=== PATIENT | female | born 1940 | race Caucasian/White ===

== ENCOUNTER 2017-05-16 13:58 | Emergency (ER) | payer MEDICARE, OTHER ==
--- NOTE | 2017-05-16 15:12 | C.PDOC ---
History Of Present Illness 76 y/o female, with multiple medical problems, c/o cough for more than a week,, initially with green sputum. pt seen by her pmd on 05/11 and prescribed a zpak, po albuterol syrup and benzonatate. pt sts sputum now clearish- whitish, but still coughing, unable to sleep and has cp when coughing. Time Seen by Provider: 05/16/17 14:56 Chief Complaint (Nursing): Cough, Cold, Congestion History Per: Patient History/Exam Limitations: no limitations Onset/Duration Of Symptoms: Days Current Symptoms Are (Timing): Still Present Reports Recently: Treated By A Physician Recent travel outside of the [place]: No Past Medical History Reviewed: Historical Data, Nursing Documentation, Vital Signs Vital Signs: Last Vital Signs Temp 98.8 F 05/16/17 18:27 Pulse 81 05/16/17 18:27 Resp 20 05/16/17 18:27 BP 153/86 H 05/16/17 18:27 Pulse Ox 95 05/18/17 11:08 - Medical History PMH: Anxiety, Arthritis, Dementia, Depression, HTN (pt denies), Hypercholesterolemia Denies: Chronic Kidney Disease - [facility] Procedures ENDOSC POLYPECTOMY OF LG INTEST (01/01/15) Family History: States: Unknown Family Hx - Social History Hx Tobacco Use: No Hx Alcohol Use: No Hx Substance Use: No - Immunization History Hx Tetanus Toxoid Vaccination: No Hx Influenza Vaccination: No Hx Pneumococcal Vaccination: No Review Of Systems Constitutional: Negative for: Fever, Chills Cardiovascular: Negative for: Chest Pain, Palpitations Respiratory: Positive for: Cough, Pleuritic Pain, Sputum. Negative for: Shortness of Breath Gastrointestinal: Negative for: Nausea, Vomiting, Abdominal Pain, Diarrhea Skin: Negative for: Rash Neurological: Negative for: Headache, Dizziness Physical Exam - Physical Exam Appears: Non-toxic, No Acute Distress Skin: Warm, Dry Head: Atraumatic, Normacephalic Oral Mucosa: Dry (slightly) Neck: No Paracervical Tenderness, Supple Chest: Symmetrical Cardiovascular: Rhythm Regular, No Murmur Respiratory: No Accessory Muscle Use, No Rales, No Rhonchi, Wheezing (scattered , left, expiratory) Gastrointestinal/Abdominal: Soft, No Tenderness Back: Normal Inspection Extremity: Normal ROM, No Pedal Edema, No Calf Tenderness, Capillary Refill (< 2 sec.) Neurological/Psych: Oriented x3, Normal Speech, Normal Cognition ED Course And Treatment - Laboratory Results Result Diagrams: 05/16/17 16:18 05/16/17 16:18 ECG: Interpreted By Me ECG Rhythm: Sinus Rhythm ECG Interpretation: No Acute Changes Rate From EC (bpm) O2 Sat by Pulse Oximetry: 95 (RA) Pulse Ox Interpretation: Normal Medical Decision Making Medical Decision Making: Treated with Tylenol and duoneb. Labs, EKG, ordered & reviewed. [address] Ray; will give pt course of steroids and albuterol mdi; d/c home with outpatient f/u. 549 pm pt feeling much better after duoneb tx, lungs clear to auscultation; will d/c home with mdi and steroids. Disposition Discussed With Dr.: Alex Ray Doctor Will See Patient In The: Office Counseled Patient/Family Regarding: Studies Performed, Diagnosis, Need For Followup, Rx Given - Disposition Referrals: Alex Ray MD [Staff Provider] - Disposition: HOME/ ROUTINE Disposition Time: 17:51 Condition: IMPROVED Additional Instructions: Take prednisone as prescribed. Use 2 puffs on inhaler every 6 hours when coughing a lot; Follow up with Dr Ray in a few days. Return to ER for any worsening symptoms. Prescriptions: Albuterol HFA [Ventolin HFA 90 mcg/actuation (8 g)] 2 puff IH Q6 #1 inhaler predniSONE [predniSONE Tab] 2 tab PO DAILY #8 tab Instructions: COPD (Chronic Obstructive Pulmonary Disease) (ED) Print Language: GREENLANDIC - Clinical Impression Clinical Impression: Bronchitis - PA / DIGITAL CARTOGRAPHER / Resident Statement MD/DO has reviewed & agrees with the documentation as recorded. - Scribe Statement The provider has reviewed the documentation as recorded by the Shaiibdmitriy Núñez All medical record entries made by the Shaiibdmitriy were at my direction and personally dictated by me. I have reviewed the chart and agree that the record accurately reflects my personal performance of the history, physical exam, medical decision making, and the department course for this patient. I have also personally directed, reviewed, and agree with the discharge instructions and disposition.
--- NOTE | 2017-05-16 16:02 | RAD ---
HISTORY: COUGH COMPARISON: No prior. TECHNIQUE: Chest PA and lateral FINDINGS: LUNGS: Hyperinflation, manifestations of COPD. No active pulmonary disease. PLEURA: No significant pleural effusion identified. No pneumothorax apparent. CARDIOVASCULAR: No radiographic findings to suggest acute or significant cardiovascular disease. OSSEOUS STRUCTURES: No significant abnormalities. VISUALIZED UPPER ABDOMEN: Normal. OTHER FINDINGS: None. IMPRESSION: No active disease.
[2017-05-16] MEDS ORDERED: Albuterol-Ipratrop 3 mg / 0.5 (3 ml) UD INH STA (16:17)
[2017-05-16 16:26] LABS: BASO # 0.1 K/uL (0.0-0.2); BASO % 1.3 % (0.0-2.0); EOS # 0.5 K/uL (0.0-0.7); EOS % 5.7 % (0.0-4.0); HEMOGLOBIN 12.7 g/dL (11.0-16.0); LYMPH # 3.8 K/uL (1.0-4.3); LYMPH % 45.4 % (20.0-40.0); MEAN CELL VOLUME 82.7 fL (81.0-99.0); MEAN CORPUSCULAR HEMOGLOBIN 26.2 pg (27.0-31.0); MEAN CORPUSCULAR HGB CONC 31.6 g/dL (33.0-37.0); MEAN PLATELET VOLUME 11.1 fL (7.2-11.7); MONO # 1.1 K/uL (0.0-0.8); MONO % 12.6 % (0.0-10.0); NEUT # 2.9 K/uL (1.8-7.0); RBC 4.87 Mil/uL (3.80-5.20); RED CELL DISTRIBUTION WIDTH 13.5 % (11.5-14.5); WHITE BLOOD COUNT 8.4 K/uL (4.8-10.8)
[2017-05-16] MEDS ORDERED: Albuterol-Ipratrop 3 mg / 0.5 (3 ml) UD ONE (16:26)
[2017-05-16 16:45] LABS: GFR AFRICAN-AMERICAN > 60; GFR NON-AFRICAN AMERICAN > 60
[2017-05-16 16:46] LABS: ALB/GLOB RATIO 1.2 (1.0-2.1); ALT/SGPT 30 U/L (9-52); AST/SGOT 31 U/L (14-36); BLOOD UREA NITROGEN 11 mg/dL (7-17); CALCIUM 8.4 mg/dl (8.6-10.4)
[2017-05-16 18:30] VITALS: BP 153/86; PULSE 81; RESP 20; TEMP 98.8
[2017-05-18 11:09] VITALS: O2SAT 95
--- NOTE | 2017-05-18 16:23 | CARD ---
APPROVED REPORT EKG Measurement Heart [id number] <Conclusion> Normal sinus rhythm Normal ECG
== END 2017-05-16 18:27 | disposition home or self-care (01) ==
LOC: C.ER 13:58
DX: J40 Bronchitis, not specified as acute or chronic (principal)

== ENCOUNTER 2017-07-02 10:12 | Emergency (ER) | payer MEDICARE, OTHER ==
[2017-07-02 10:19] VITALS: TEMP 98.2
[2017-07-02 10:51] LABS: BASO # 0.1 K/uL (0.0-0.2); BASO % 1.2 % (0.0-2.0); EOS # 0.1 K/uL (0.0-0.7); EOS % 1.8 % (0.0-4.0); HEMATOCRIT 38.6 % (34.0-47.0); LYMPH # 2.8 K/uL (1.0-4.3); LYMPH % 40.7 % (20.0-40.0); MEAN CELL VOLUME 82.1 fL (81.0-99.0); MEAN CORPUSCULAR HEMOGLOBIN 26.6 pg (27.0-31.0); MEAN CORPUSCULAR HGB CONC 32.4 g/dL (33.0-37.0); MEAN PLATELET VOLUME 9.3 fL (7.2-11.7); MONO # 0.7 K/uL (0.0-0.8); MONO % 9.8 % (0.0-10.0); NRBC % 0.1 % (0.0-2.0); RED CELL DISTRIBUTION WIDTH 13.6 % (11.5-14.5); WHITE BLOOD COUNT 6.9 K/uL (4.8-10.8)
[2017-07-02 11:03] LABS: CHLORIDE 101 mmol/L (98-107); POTASSIUM 3.6 mmol/L (3.6-5.2); SODIUM 139 mmol/L (132-148)
[2017-07-02 11:05] LABS: ALB/GLOB RATIO 1.2 (1.0-2.1); ALKALINE PHOSPHATASE 72 U/L (38-126); AST/SGOT 34 U/L (14-36); BILIRUBIN,TOTAL 0.7 mg/dL (0.2-1.3); CARBON DIOXIDE 27 mmol/L (22-30); GFR AFRICAN-AMERICAN > 60; TOTAL PROTEIN 6.9 g/dL (6.3-8.3)
[2017-07-02 11:06] LABS: ALT/SGPT 33 U/L (9-52); BLOOD UREA NITROGEN 12 mg/dL (7-17); CALCIUM 8.7 mg/dl (8.6-10.4); GLUCOSE,RANDOM 86 mg/dL (65-105)
--- NOTE | 2017-07-02 11:23 | C.PDOC ---
History Of Present Illness 76-year-old female whose past medical history includes COPD, presents to the ED for evaluation swelling to her bilateral feet which began around 4 days ago. Patient also reports shortness of breath with exertion as well as an intermittent cough which began around 1 month ago. Patient states she has already been evaluated by her PMD and is receiving treatment for cough. She denies fever, chills, chest pain, extremity numbness/weakness, or direct trauma/ injury to the affected area. Time Seen by Provider: 07/02/17 10:22 Chief Complaint (Nursing): Lower Extremity Problem/Injury History Per: Patient History/Exam Limitations: no limitations Onset/Duration Of Symptoms: Days (4), Intermittent Episodes Current Symptoms Are (Timing): Still Present Additional History Per: Patient Past Medical History Reviewed: Historical Data, Nursing Documentation, Vital Signs Vital Signs: Last Vital Signs Temp 98.2 F 07/02/17 10:18 Pulse 72 07/02/17 11:32 Resp 18 07/02/17 11:32 BP 146/82 07/02/17 11:32 Pulse Ox 95 07/02/17 12:44 - Medical History PMH: Anxiety, Arthritis, COPD, Dementia, Depression, HTN (pt denies), Hypercholesterolemia Surgical History: No Surg Hx - [facility] Procedures ENDOSC POLYPECTOMY OF LG INTEST (01/01/15) Family History: States: Unknown Family Hx - Social History Hx Tobacco Use: No Hx Alcohol Use: No Hx Substance Use: No - Immunization History Hx Tetanus Toxoid Vaccination: No Hx Influenza Vaccination: No Hx Pneumococcal Vaccination: No Review Of Systems Constitutional: Negative for: Fever, Chills Cardiovascular: Negative for: Chest Pain Respiratory: Positive for: Cough, SOB with Excertion Musculoskeletal: Positive for: Other (bilateral feet swelling) Neurological: Negative for: Weakness, Numbness Physical Exam - Physical Exam Appears: Non-toxic, No Acute Distress Skin: Normal Color, Warm, Dry Head: Atraumatic, Normacephalic Eye(s): bilateral: Normal Inspection Oral Mucosa: Moist Neck: Supple Chest: Symmetrical, No Deformity, No Tenderness Cardiovascular: Rhythm Regular, No Murmur Respiratory: Normal Breath Sounds, No Rales, No Rhonchi, No Wheezing Back: Normal Inspection Extremity: Normal ROM, Pedal Edema (mild, non-pitting ), No Calf Tenderness, Capillary Refill (less than 2 seconds ) Pulses: Left Dorsalis Pedis: Normal (2+), Right Dorsalis Pedis: Normal (2+) Neurological/Psych: Oriented x3, Normal Speech, Normal Cognition Gait: Steady ED Course And Treatment - Laboratory Results Result Diagrams: 07/02/17 10:46 07/02/17 10:46 Lab Interpretation: No Acute Changes O2 Sat by Pulse Oximetry: 95 (on RA) Pulse Ox Interpretation: Normal - Other Rad CXR X-Ray: Interpreted by Me, Viewed By Me, Read By Radiologist Interpretation: PROCEDURE: CHEST RADIOGRAPH, 1 VIEW. HISTORY: SOB. COMPARISON: None available. FINDINGS: LUNGS: Clear. PLEURA: No pneumothorax or pleural fluid seen. CARDIOVASCULAR: Normal. OSSEOUS STRUCTURES: No significant abnormalities. VISUALIZED UPPER ABDOMEN: Elevation left hemidiaphragm is appreciated mildly. OTHER FINDINGS: None. IMPRESSION: No acute infiltrate or pleural effusion identified. Mild elevation left hemidiaphragm identified at this time. Medical Decision Making Medical Decision Making: Impression: 76 y/o female with b/l feet swelling Plan: * labs * EKG * CXR * reassess and disposition Progress: labs, EKG, CXR ordered and reviewed. Labs show no acute findings, no elevated BNP or leukocytosis. Patient received Lasix PO. Patient remained afebrile alert and oriented with stable vital signs during ER evaluation. Discussed results with patient, and copy of report was provided. On re-examination, patient is resting comfortably in no acute distress. Patient given follow up instructions. Instructed to return to ER if symptoms worsen or new symptoms arise. Disposition Counseled Patient/Family Regarding: Diagnosis, Need For Followup, Rx Given - Disposition Referrals: Alex Ray MD [Staff Provider] - Disposition: HOME/ ROUTINE Disposition Time: 11:22 Condition: STABLE Additional Instructions: Vaya a morgan mdico o la clnica en 2-5 murguia sin falta, para mas evaluacin. [place] los medicamentos cate indicado. Volver a la gil de emergencia en cualquier momento si los sntomas persisten o empeoran. Prescriptions: Furosemide [Lasix] 20 mg PO DAILY #10 tab Instructions: Leg Edema (ED) Forms: [employer] (Chadian) Print Language: SOMALI - POA Present On Arrival: None - Clinical Impression Clinical Impression: Edema of both feet - PA / LEGAL EXECUTIVE / Resident Statement MD/DO has reviewed & agrees with the documentation as recorded. - Scribe Statement The provider has reviewed the documentation as recorded by the Scribe (Janice Rosario) All medical record entries made by the Scribe were at my direction and personally dictated by me. I have reviewed the chart and agree that the record accurately reflects my personal performance of the history, physical exam, medical decision making, and the department course for this patient. I have also personally directed, reviewed, and agree with the discharge instructions and disposition.
[2017-07-02 11:33] VITALS: BP 146/82; PULSE 72; RESP 18
[2017-07-02 11:59] VITALS: O2SAT 95
--- NOTE | 2017-07-02 12:16 | RAD ---
PROCEDURE: CHEST RADIOGRAPH, 1 VIEW HISTORY: SOB COMPARISON: None available. FINDINGS: LUNGS: Clear. PLEURA: No pneumothorax or pleural fluid seen. CARDIOVASCULAR: Normal. OSSEOUS STRUCTURES: No significant abnormalities. VISUALIZED UPPER ABDOMEN: Elevation left hemidiaphragm is appreciated mildly. OTHER FINDINGS: None. IMPRESSION: No acute infiltrate or pleural effusion identified. Mild elevation left hemidiaphragm identified at this time.
== END 2017-07-02 11:37 | disposition home or self-care (01) ==
LOC: C.ER 10:12
DX: R60.0 Localized edema (principal)

== ENCOUNTER 2018-06-09 08:39 | Emergency (ER) | payer MEDICARE, OTHER ==
--- NOTE | 2018-06-09 09:03 | C.PDOC ---
History Of Present Illness 77 year old female presents to the ED complaining of posterior neck and upper back pain that began yesterday. Patient denies any chest pain, SOB, weakness, numbness, or tingling. She denies any trauma/injuries. Time Seen by Provider: 06/09/18 08:52 Chief Complaint (Nursing): Upper Extremity Problem/Injury History Per: Patient History/Exam Limitations: no limitations Onset/Duration Of Symptoms: Days Current Symptoms Are (Timing): Still Present Quality Of Discomfort: "Pain" Associated Symptoms: None Past Medical History Reviewed: Historical Data, Nursing Documentation, Vital Signs Vital Signs: Last Vital Signs Temp 98.3 F 06/09/18 10:04 Pulse 82 06/09/18 10:04 Resp 18 06/09/18 10:04 BP 167/91 H 06/09/18 10:04 Pulse Ox 96 06/09/18 10:04 - Medical History PMH: Anxiety, Arthritis, COPD, Dementia, Depression, HTN (pt denies), Hypercholesterolemia Denies: Chronic Kidney Disease Other Surgeries: Hx of surgeries - [facility] Procedures ENDOSC POLYPECTOMY OF LG INTEST (01/01/15) Family History: States: No Known Family Hx - Social History Hx Tobacco Use: No Hx Alcohol Use: No Hx Substance Use: No - Immunization History Hx Tetanus Toxoid Vaccination: No Hx Influenza Vaccination: No Hx Pneumococcal Vaccination: No Review Of Systems Musculoskeletal: Positive for: Neck Pain (Posterior neck pain ) Neurological: Negative for: Weakness, Numbness Physical Exam - Physical Exam Appears: Non-toxic, No Acute Distress Skin: Warm, Dry, No Rash Head: Atraumatic, Normacephalic Eye(s): bilateral: Normal Inspection Nose: Normal Oral Mucosa: Moist Neck: Normal ROM, No Midline Cervical Tenderness, Paracervical Tenderness (Mild ) Chest: Symmetrical Cardiovascular: Rhythm Regular, No Murmur Respiratory: Normal Breath Sounds, No Rales, No Rhonchi, No Wheezing Back: No Vertebral Tenderness, No Decreased ROM, Paraspinal Tenderness (thoracic ), Other (kyphosis) Extremity: Normal ROM Extremity: Bilateral: Atraumatic, Normal Color And Temperature, Normal ROM Neurological/Psych: Oriented x3, Normal Speech, Normal Motor, Normal Sensation Gait: Steady ED Course And Treatment O2 Sat by Pulse Oximetry: 97 (RA) Pulse Ox Interpretation: Normal Medical Decision Making Medical Decision Making: Impression: Upper back, neck pain; Kyphosis. No recent injury or clinical indication for xray. Plan: - Valium 2mg PO - Toradol 30mg IM On re-evaluation, the patient reports pain is improving. She remains afebrile in no acute distress. Denies any chest pain, SOB, numbness or weakness. Recommend analgesics and will discharge home. Rx given. Patient instructed to follow up with PCP Disposition - Disposition Referrals: Alex Ray MD [Staff Provider] - Disposition: HOME/ ROUTINE Disposition Time: 09:51 Condition: STABLE Additional Instructions: Follow up with your primary doctor Take pain medicine as needed Please apply heat to area of pain Prescriptions: Acetaminophen [Tylenol Arthritis] 650 mg PO Q8 #30 tablet.er Instructions: Upper Back Pain (DC) Forms: [facility] (Setswana) - POA Present On Arrival: None - Clinical Impression Clinical Impression: Upper back pain - PA / TRAINMASTER / Resident Statement MD/DO has reviewed & agrees with the documentation as recorded. - Scribe Statement The provider has reviewed the documentation as recorded by the Scribdmitriy Carrington All medical record entries made by the Shaiibdmitriy were at my direction and personally dictated by me. I have reviewed the chart and agree that the record accurately reflects my personal performance of the history, physical exam, medical decision making, and the department course for this patient. I have also personally directed, reviewed, and agree with the discharge instructions and disposition.
[2018-06-09 09:10] VITALS: RESP 18
[2018-06-09 10:05] VITALS: BP 167/91; PULSE 82; TEMP 98.3
[2018-06-09 10:59] VITALS: O2SAT 97
== END 2018-06-09 10:05 | disposition home or self-care (01) ==
LOC: C.ER 08:39
DX: M54.89 Other dorsalgia (principal)
CPT/HCPCS: 96372; 99284; J1885

== ENCOUNTER 2018-08-20 17:59 | Emergency (ER) | payer MEDICARE, OTHER ==
[2018-08-20 18:17] VITALS: BP 142/81; PULSE 83; RESP 18; TEMP 97.8; O2SAT 98
--- NOTE | 2018-08-20 19:15 | C.PDOC ---
History Of Present Illness 77 year old female presents to the ED for evaluation of neck pain since yesterday. Patient reports history of arthritis. She denies falls, injury, extremity numbness or weakness or headache. Time Seen by Provider: 08/20/18 18:19 Chief Complaint (Nursing): Back Pain History Per: Patient History/Exam Limitations: no limitations Onset/Duration Of Symptoms: Hrs Current Symptoms Are (Timing): Still Present Quality Of Discomfort: "Pain" Associated Symptoms: denies: New Weakness, New Numbness Additional History Per: Patient Past Medical History Reviewed: Historical Data, Nursing Documentation, Vital Signs Vital Signs: Last Vital Signs Temp 97.8 F 08/20/18 18:14 Pulse 83 08/20/18 18:14 Resp 18 08/20/18 18:14 BP 142/81 08/20/18 18:14 Pulse Ox 98 08/20/18 18:14 - Medical History PMH: Anxiety, Arthritis, COPD, Dementia, Depression, HTN (pt denies), Hypercholesterolemia Denies: Chronic Kidney Disease Surgical History: No Surg Hx - [facility] Procedures ENDOSC POLYPECTOMY OF LG INTEST (01/01/15) Family History: States: Unknown Family Hx - Social History Hx Tobacco Use: No Hx Alcohol Use: No Hx Substance Use: No - Immunization History Hx Tetanus Toxoid Vaccination: No Hx Influenza Vaccination: No Hx Pneumococcal Vaccination: No Review Of Systems Musculoskeletal: Positive for: Neck Pain Neurological: Negative for: Weakness, Numbness, Headache Physical Exam - Physical Exam Appears: Non-toxic, No Acute Distress Skin: Normal Color, Warm, Dry Head: Atraumatic, Normacephalic Eye(s): bilateral: Normal Inspection Oral Mucosa: Moist Neck: Normal ROM, Paracervical Tenderness (muscle ), Other (kyphosis ) Chest: Symmetrical, No Deformity, No Tenderness Cardiovascular: Rhythm Regular Respiratory: Normal Breath Sounds Back: Other (left trapezius muscle tenderness) Extremity: Normal ROM, Capillary Refill (less than 2 seconds ) Neurological/Psych: Oriented x3, Normal Speech, Normal Cognition Gait: Steady ED Course And Treatment O2 Sat by Pulse Oximetry: 98 (on RA) Pulse Ox Interpretation: Normal Medical Decision Making Medical Decision Making: Impression: neck pain Prior visits reviewed and patient has been seen for similar pain in the past Plan: Toradol and Valium On reassessment, patient resting comfortably and states pain is improving. She has no fever, no headache, no bony tenderness, no numbness, no weakness. Patient advised to follow up with their physician in 1-2 days. Disposition Counseled Patient/Family Regarding: Diagnosis, Need For Followup, Rx Given - Disposition Referrals: Alex Ray MD [Staff Provider] - Disposition: HOME/ ROUTINE Disposition Time: 19:16 Condition: STABLE Additional Instructions: You can apply heat to area Take Tylenol 500mg for any pain Take Ibuprofen as needed for pain every 6-8 hours, with food to not upset stoma ch Take Flexeril every 8 hours as needed for muscular pain and spasm, caution may cause drowsiness Prescriptions: Methocarbamol [Robaxin-750] 750 mg PO Q8 #30 tab Naproxen [Naprosyn] 1 tab PO BID PRN #25 tab PRN Reason: Pain Instructions: Generalized Neck Pain (DC) Print Language: SLOVENIAN - POA Present On Arrival: None - Clinical Impression Clinical Impression: Neck pain - PA / CHEMICAL ANALYTICAL SAMPLER / Resident Statement MD/DO has reviewed & agrees with the documentation as recorded. - Scribe Statement The provider has reviewed the documentation as recorded by the Scribe (Janice Rosario) All medical record entries made by the Scribe were at my direction and personally dictated by me. I have reviewed the chart and agree that the record accurately reflects my personal performance of the history, physical exam, medical decision making, and the department course for this patient. I have also personally directed, reviewed, and agree with the discharge instructions and disposition.
== END 2018-08-20 19:54 | disposition home or self-care (01) ==
LOC: C.ER 17:59
DX: M54.2 Cervicalgia (principal); E78.00 Pure hypercholesterolemia, unspecified; I10 Essential (primary) hypertension
CPT/HCPCS: 96372; 99283; J1885

== ENCOUNTER 2019-01-01 14:54 | Emergency (ER) | payer MEDICARE, OTHER ==
[2019-01-01 15:00] VITALS: TEMP 97.8
--- NOTE | 2019-01-01 17:35 | C.PDOC ---
History Of Present Illness 78 year old female presents to the ED for evaluation of left ankle pain which began around 2 weeks ago. Patient has tried applying heating pads and soaking her foot in Epsom salt, without relief. Patient took 800mg Ibuprofen yesterday with transient relief. She denies injuries or trauma to the ED, or extremity numbness/weakness at this time. Time Seen by Provider: 01/01/19 15:20 Chief Complaint (Nursing): Lower Extremity Problem/Injury History Per: Patient History/Exam Limitations: no limitations Onset/Duration Of Symptoms: Days Current Symptoms Are (Timing): Still Present Additional History Per: Patient Past Medical History Reviewed: Historical Data, Nursing Documentation, Vital Signs Vital Signs: Last Vital Signs Temp 97.8 F 01/01/19 14:57 Pulse 88 01/01/19 14:57 Resp 20 01/01/19 14:57 BP 146/82 01/01/19 14:57 Pulse Ox 97 01/01/19 14:57 - Medical History PMH: Anxiety, Arthritis, COPD, Dementia, Depression, HTN (pt denies), Hypercholesterolemia Denies: Chronic Kidney Disease Surgical History: No Surg Hx - [facility] Procedures ENDOSC POLYPECTOMY OF LG INTEST (01/01/15) Family History: States: Unknown Family Hx - Social History Hx Tobacco Use: No Hx Alcohol Use: No Hx Substance Use: No - Immunization History Hx Tetanus Toxoid Vaccination: No Hx Influenza Vaccination: No Hx Pneumococcal Vaccination: No Review Of Systems Musculoskeletal: Positive for: Other (left ankle pain ) Neurological: Negative for: Weakness, Numbness Physical Exam - Physical Exam Appears: Non-toxic, No Acute Distress Skin: Normal Color, Warm, Dry Head: Atraumatic, Normacephalic Eye(s): bilateral: Normal Inspection Neck: Supple Chest: Symmetrical, No Deformity Extremity: Normal ROM, Tenderness (to left heel ), Capillary Refill (less than 2 seconds ), No Deformity, No Swelling Neurological/Psych: Normal Speech, Normal Cognition, Normal Sensation ED Course And Treatment O2 Sat by Pulse Oximetry: 97 (on RA) Pulse Ox Interpretation: Normal - Other Rad left foot XR X-Ray: Interpreted by Me (negative ), Viewed By Me Medical Decision Making Medical Decision Making: Progress: Left foot and ankle XR ordered and reviewed. Prednisone PO given. Disposition - Disposition Referrals: Kyra Khan DPM [Staff Provider] - Disposition: HOME/ ROUTINE Disposition Time: 16:30 Condition: GOOD Additional Instructions: Follow up with Call Center Analyst within 1-2 days without fail. Return if worsened. Prescriptions: Naproxen 375 mg PO BID #20 tablet predniSONE [Prednisone] 10 mg PO BID #10 tab Instructions: Gout (DC) Forms: [employer] (Turkish) - Clinical Impression Clinical Impression: Gout, Foot pain - PA / STEEL UNLOADER / Resident Statement MD/DO has reviewed & agrees with the documentation as recorded. - Scribe Statement The provider has reviewed the documentation as recorded by the Scribe (Janice Rosario) All medical record entries made by the Scribe were at my direction and personally dictated by me. I have reviewed the chart and agree that the record accurately reflects my personal performance of the history, physical exam, medical decision making, and the department course for this patient. I have also personally directed, reviewed, and agree with the discharge instructions and disposition.
[2019-01-01 18:30] VITALS: BP 136/85; PULSE 81; RESP 16
--- NOTE | 2019-01-02 11:38 | RAD ---
PROCEDURE: Left foot radiographs Left ankle radiographs HISTORY: pain to the heel COMPARISON: None available. FINDINGS: BONES: Linear lucency noted at the base of the 5th distal phalanx of unclear significance, possibly vascular groove however nondisplaced fracture cannot be excluded. The remainder of the osseous structures appear intact without acute displaced fracture identified. Calcaneal enthesophyte. JOINTS: No dislocation. SOFT TISSUES: Mild soft tissue swelling. No evidence of radiopaque foreign body. OTHER FINDINGS: None. IMPRESSION: Mild soft tissue swelling. Linear lucency noted at the base of the 5th distal phalanx of unclear significance, possibly vascular groove however nondisplaced fracture cannot be excluded. Correlate with physical exam to exclude point tenderness. The remainder of the osseous structures appear intact without acute displaced fracture identified. Calcaneal enthesophyte. Study marked for PA review.
[2019-01-06 16:19] VITALS: O2SAT 97
== END 2019-01-01 18:29 | disposition home or self-care (01) ==
LOC: C.ER 14:54
DX: M10.9 Gout, unspecified (principal); M79.672 Pain in left foot